=== PATIENT | female | born 1960 | race Caucasian/White ===

== ENCOUNTER 2021-06-06 10:27 | Emergency (ER) | payer MEDICAID ==
[2021-06-06 11:30] LABS: HEMATOCRIT 49.1 % (37.0-47.0); HEMOGLOBIN 16.3 g/dl (12.0-16.0); IMMATURE GRANULOCYTES 0.4 % (0.0-5.0); MEAN CELL VOLUME 82.5 fL CALC (80.0-100.0); MEAN CORPUSCULAR HGB 27.4 pG CALC (26.0-32.0); MEAN CORPUSCULAR HGB CONC 33.2 g/dL CAL (32.0-36.0); NEUT# 25.15 thou/uL (2.00-7.15); RED BLOOD COUNT 5.95 mill/uL (4.20-5.60); RED CELL DISTRI WIDTH 14.4 % (11.5-15.5)
[2021-06-06 11:40] LABS: ALBUMIN 4.6 g/dL (3.2-5.0); BILIRUBIN, TOTAL 1.3 mg/dL (0.0-1.4); CREATININE 1.4 mg/dL (0.5-1.0); TOTAL PROTEIN 8.8 g/dL (6.3-8.2)
[2021-06-06 11:42] LABS: POTASSIUM 3.2 mmol/l (3.5-5.1)
[2021-06-06 16:00] VITALS: BP 180/123
== END 2021-06-06 16:55 | disposition hospice, inpatient (51) ==
LOC: ED 10:27
PROVIDERS: Family Medicine
DX: R10.84 Generalized abdominal pain (principal); R11.2 Nausea with vomiting, unspecified; R19.7 Diarrhea, unspecified; C23 Malignant neoplasm of gallbladder; Z51.5 Encounter for palliative care; Z20.822 Contact with and (suspected) exposure to COVID-19
CPT/HCPCS: Q9967